=== PATIENT | female | born 1960 | race Two or more races ===

== ENCOUNTER 2019-04-10 01:41 | Emergency (ER) | payer OTHER ==
[~2019-04-10] VITALS: Ht 165.1 cm; Wt 70.4 kg
[2019-04-10] MEDS ORDERED: MORPHINE SULFATE 4 MG/ML, 1ML ONE ×2 (01:53→03:00)
[2019-04-10] MEDS ORDERED: ONDANSETRON 2MG/ML, 2ML IVPush ONE (03:00)
[2019-04-10] MEDS ORDERED: MORPHINE SULFATE 4 MG/ML, 1ML IVPush PRN (03:00)
[2019-04-10] MEDS ORDERED: ONDANSETRON 2MG/ML, 2ML ONE (03:00)
[2019-04-10 03:02] LABS: BASOPHILS # (AUTO) 0.01 x10^3/uL (0-0.1); BASOPHILS % (AUTO) 0 % (0-1); EOSINOPHILS # (AUTO) 0.09 x10^3/uL (0-0.4); EOSINOPHILS % (AUTO) 1 % (1-7); LYMPHOCYTES % (AUTO) 8 % (22-44); MD NO; MEAN CORPUSCULAR HEMOGLOBIN 29.7 pg (27.0-34.8); MEAN CORPUSCULAR HGB CONC 32.7 g/dL (32.4-35.8); MEAN CORPUSCULAR VOLUME 90.9 fL (80-100); MONOCYTES # (AUTO) 0.84 x10^3/uL (0.2-0.8); MONOCYTES % (AUTO) 10 % (2-9); NEUTROPHILS # (AUTO) 6.69 x10^3/uL (1.8-6.8); NEUTROPHILS % (AUTO) 80 % (42-75); PLATELET COUNT 243 x10^3/uL (130-400); RED BLOOD COUNT 4.75 x10^6/uL (3.82-5.3); RED CELL DISTRIBUTION WIDTH 13.6 % (9.6-15.2)
[2019-04-10 03:07] LABS: CULTURE INDICATED? YES; MICROSCOPIC INDICATED
[2019-04-10] MEDS ORDERED: NEBI20TA2 PO (03:08)
[2019-04-10] MEDS ORDERED: HYDR-3341 PO (03:08)
[2019-04-10] MEDS ORDERED: LOSA1TAB22 PO (03:08)
[2019-04-10] MEDS ORDERED: TRAM1TAB6 PO (03:08)
--- NOTE | 2019-04-10 03:09 | NUR ---
PT RESTING ON GURMOBILE, MEDICATED PER JAN, MONITORS IN PLACE, CALL LIGHT WITHIN REACH, SIDERAILS UP X2. AWAITING LAB RESULTS AND CT
[2019-04-10 03:15] LABS: ALANINE AMINOTRANSFERASE 36 U/L (12-78); ALBUMIN 3.9 g/dL (3.4-5.0); ANION GAP 7 mmol/L (5-15); CALCIUM 8.6 mg/dL (8.5-10.1); CHLORIDE 103 mmol/L (98-107); CREATININE 0.97 mg/dL (0.55-1.02)
[2019-04-10 03:19] LABS: ALKALINE PHOSPHATASE 87 U/L (45-117); BILIRUBIN,TOTAL 0.4 mg/dL (0.2-1.0); TOTAL PROTEIN 8.1 g/dL (6.4-8.2); TROPONIN I < 0.015 ng/mL (0.000-0.045)
--- NOTE | 2019-04-10 03:20 | NUR ---
PT TO CT
[2019-04-10 04:20] VITALS: BP 136/50
--- NOTE | 2019-04-10 04:21 | NUR ---
pt resting calmly, denies needs, family at bedside, moniors in place, call light within reach. awaiting ct result
--- NOTE | 2019-04-10 04:26 | NUR ---
pt up to rr with steady gait
[2019-04-10] MEDS ORDERED: OMNIPAQUE 350 MG/ML, 100ML BOTTLE ONE (05:20)
== END 2019-04-10 05:24 | disposition home or self-care (01) ==
LOC: ED 05:18
DX: K52.9 Noninfective gastroenteritis and colitis, unspecified (principal); R30.0 Dysuria
CPT/HCPCS: 36415; 71046; 74177; 80053; 81001; 83690; 84484; 85025; 87086; 87147; 93005; 96374; 96375; 99284; J2270; J2405; Q9967